=== PATIENT | female | born 1990 | race Caucasian/White ===

== ENCOUNTER 2018-09-03 00:16 | Inpatient (IN) | payer OTHER ==
--- NOTE | 2018-09-03 00:44 | EDPHY ---
H & P Stated Complaint: R arm swelling x few days, recent long plane rides. Time Seen by Provider: 09/03/18 00:34 HPI/ROS: Chief Complaint: Arm pain and swelling HPI: 28-year-old woman presenting with 4 days of right arm swelling. Patient has been traveling overseas. She lives in [place]. She had flown to [place] and back, arriving Friday night. Notice swelling on Friday. She did vital loss [place] and returned. Started noticing the swelling on Friday. Been getting progressively worse today today she noticed that her hand seemed discolored. Arm feels tight. No numbness or tingling. No injuries. She has a Mirena IUD. No other oral contraceptives. She does not smoke. No family history of blood clotting disorders. No trauma. No chest pain or shortness of breath. ROS: 10 systems were reviewed and were negative except those elements noted in the HPI. PMH: Denies Social History: No smoking, occasional alcohol, no recreational drug use Family History: non-contributory Physical Exam: Gen: Awake, Alert, No Distress HEENT: Nose: no rhinorrhea Eyes: PERRLA, EOMI Mouth: Moist mucosa Neck: Supple, no JVD Chest: nontender, lungs clear to auscultation Heart: S1, S2 normal, no murmur Abd: Soft, non-tender, no guarding Back: no CVA tenderness, no midline tenderness Ext: Right arm is profoundly edematous from the shoulder down. Hand is dusky. She has 1+ radial pulses. Capillary refills is less than 3 sec. Sensation is intact in the radial, median, and ulnar nerve distribution Skin: no rash Neuro: CN II-XII intact, Sensation grossly intact, Strength 5/5 in bilateral upper and lower extremities - Personal History LMP (Females 10-55): IUD In Place Current Tetanus Diphtheria and Acellular Pertussis (TDAP): No - Medical/Surgical History Hx Asthma: No Hx Chronic Respiratory Disease: No Hx Diabetes: No Hx Cardiac Disease: No Hx Renal Disease: No Hx Cirrhosis: No Hx Alcoholism: No Hx HIV/AIDS: No Hx Splenectomy or Spleen Trauma: No Other PMH: Denies - Social History Smoking Status: Never smoked Constitutional: Initial Vital Signs Temperature (C) 36.8 C 09/03/18 00:18 Heart Rate 79 09/03/18 00:18 Respiratory Rate 16 02/28/19 00:18 Blood Pressure 137/98 H 09/03/18 00:18 O2 Sat (%) 98 09/03/18 00:18 O2 Delivery Mode Room Air Allergies/Adverse Reactions: amoxicillin Allergy (Verified 09/03/18 00:18) Home Medications: Medication Instructions Recorded NK [No Known Home Meds] 09/03/18 Medical Decision Making - Diagnostics Imaging Results: Ultrasound shows extensive DVT in the right upper extremity with thrombus in the right subclavian vein extending the axillary vein into the basilic vein. Study interpreted by Dr. So, direct Radiology. ED Course/Re-evaluation: Ultrasound noted. I have discussed with the hospitalist. Plan to start the patient on a heparin drip. Admit to Step-Down Unit. Patient does have 1+ radial pulses. Departure - Departure Disposition: [facility] Inpatient Acute Clinical Impression: DVT (deep venous thrombosis) Condition: Fair Referrals: NONE *PRIMARY CARE P,. [Primary Care Provider] - As per Instructions
[2018-09-03] MEDS ORDERED: HEPARIN/DEXTROSE 500 ML IV ONE (02:04)
[2018-09-03] MEDS ORDERED: HEPARIN 10,000 UNIT/10 ML MDV (1,000 UNIT/ML) IVP ONE (02:04)
[2018-09-03] MEDS ORDERED: HEPARIN 10,000 UNIT/10 ML MDV (1,000 UNIT/ML) ONE (02:31)
[2018-09-03 02:36] LABS: PLATELET COUNT 183 10^3/uL (150-400)
[2018-09-03] MEDS ORDERED: ONDANSETRON 4 MG/2 ML VIAL IVP PRN (02:38)
[2018-09-03] MEDS ORDERED: ONDANSETRON DISINTEGRATING 4 MG TAB PO PRN (02:38)
[2018-09-03] MEDS ORDERED: HEPARIN 10,000 UNIT/10 ML MDV (1,000 UNIT/ML) IVP PRN (02:40)
[2018-09-03 02:44] LABS: INR 1.15 (0.83-1.16); PROTIME(PATIENT) 14.2 SEC (12.0-15.0)
[2018-09-03] MEDS ORDERED: HEPARIN/DEXTROSE 500 ML IV SCH ×2 (02:45→16:45)
--- NOTE | 2018-09-03 03:17 | PDGENHP ---
History and Physical - Chief Complaint Arm swelling - History of Present Illness 28 yo F w/ no PMHx presents with R arm swelling. The patient has been travelling frequently lately. She returned from [place] to the [place] 10 days ago. She then travelled to [place] on Friday. On Friday she noticed some subtle R arm swelling when putting on a jacket. She thinks this went away and didn't notice it for the next few days. She traveled here a few days ago and then began to note the swelling again yesterday. Today this became much worse and her hand became dusky. She has discomfort from her skin feeling tight but denies anna pain or numbness. She has good radial pulse. In the ED her evaluation is notable for extensive DVT in the RUE. She has no prior personal history or family history of blood clots. She does have a Mirena IUD in place. She does not smoke and is not obese. During my evaluation the patient tells me her swelling and coloring are improving with elevation of her RUE. Case discussed with ED physician Dr. Woodward; records reviewed and summarized above. History Information - Allergies/Home Medication List Allergies/Adverse Reactions: amoxicillin Allergy (Verified 09/03/18 00:18) Home Medications: NK [No Known Home Meds] 09/03/18 [Last Taken Unknown] I have personally reviewed and updated: family history, medical history - Past Medical History no pertinent PMH - Surgical History Reports: no pertinent surgical hx - Family History Positive for: CAD Additional family history: Denies family hx of VTE - Social History Smoking Status: Never smoked Review of Systems Review of Systems: ROS: 10pt was reviewed & negative except for what was stated in HPI & below Physical Exam Physical Exam: Temp Pulse Resp BP Pulse Ox 36.6 C 90 18 145/96 H 96 09/03/18 03:04 09/03/18 03:04 09/03/18 03:04 09/03/18 03:04 09/03/18 03:04 Constitutional: no apparent distress, appears nourished Eyes: PERRL, EOMI Ears, Nose, Mouth, Throat: moist mucous membranes, no oral mucosal ulcers Cardiovascular: regular rate and rhythym, no murmur, rub, or gallop Respiratory: no respiratory distress, clear to auscultation Gastrointestinal: normoactive bowel sounds, soft, non-tender abdomen Skin: warm, other (RUE swelling, easily palpable R radial pulse) Musculoskeletal: full muscle strength, other (RUE swelling) Neurologic: AAOx3, CN II-XII Intact Psychiatric: interacting appropriately, not anxious Lab Data & Imaging Review 09/03/18 02:30 09/03/18 02:30 WBC 8.57 10^3/uL (3.80-9.50) 09/03/18 02:30 RBC 4.29 10^6/uL (4.18-5.33) 09/03/18 02:30 Hgb 13.2 g/dL (12.6-16.3) 09/03/18 02:30 Hct 38.8 % (38.0-47.0) 09/03/18 02:30 MCV 90.4 fL (81.5-99.8) 09/03/18 02:30 MCH 30.8 pg (27.9-34.1) 09/03/18 02:30 MCHC 34.0 g/dL (32.4-36.7) 09/03/18 02:30 RDW 12.0 % (11.5-15.2) 09/03/18 02:30 Plt Count 183 10^3/uL (150-400) 09/03/18 02:30 MPV 10.5 fL (8.7-11.7) 09/03/18 02:30 Neut % (Auto) 46.5 % (39.3-74.2) 09/03/18 02:30 Lymph % (Auto) 41.7 % (15.0-45.0) 09/03/18 02:30 Ceiba % (Auto) 10.3 % (4.5-13.0) 09/03/18 02:30 Eos % (Auto) 1.1 % (0.6-7.6) 09/03/18 02:30 Baso % (Auto) 0.2 % (0.3-1.7) L 09/03/18 02:30 Nucleat RBC Rel Count 0.0 % (0.0-0.2) 09/03/18 02:30 Absolute Neuts (auto) 3.99 10^3/uL (1.70-6.50) 09/03/18 02:30 Absolute Lymphs (auto) 3.57 10^3/uL (1.00-3.00) H 09/03/18 02:30 Absolute Monos (auto) 0.88 10^3/uL (0.30-0.80) H 09/03/18 02:30 Absolute Eos (auto) 0.09 10^3/uL (0.03-0.40) 09/03/18 02:30 Absolute Basos (auto) 0.02 10^3/uL (0.02-0.10) 09/03/18 02:30 Absolute Nucleated RBC 0.00 10^3/uL (0-0.01) 09/03/18 02:30 Immature Gran % 0.2 % (0.0-1.1) 09/03/18 02:30 Immature Gran # 0.02 10^3/uL (0.00-0.10) 09/03/18 02:30 PT 14.2 SEC (12.0-15.0) 09/03/18 02:30 INR 1.15 (0.83-1.16) 09/03/18 02:30 APTT 25.2 SEC (23.0-38.0) 09/03/18 02:30 Sodium 139 mEq/L (135-145) 09/03/18 02:30 Potassium 3.8 mEq/L (3.5-5.2) 09/03/18 02:30 Chloride 105 mEq/L (97-110) 09/03/18 02:30 Carbon Dioxide 25 mEq/l (22-31) 09/03/18 02:30 Anion Gap 9 mEq/L (6-14) 09/03/18 02:30 BUN 12 mg/dL (7-23) 09/03/18 02:30 Creatinine 0.7 mg/dL (0.6-1.0) 09/03/18 02:30 Estimated GFR > 60 09/03/18 02:30 Glucose 95 mg/dL (70-100) 09/03/18 02:30 Calcium 9.1 mg/dL (8.5-10.4) 09/03/18 02:30 Assessment & Plan Assessment: 28 yo F presents with extensive RUE DVT. Plan: 1. RUE DVT - Unprovoked; recent air travel likely not a sufficient trigger for such an extensive clot. Presentation is suggestive of genetic predisposition to VTE although she denies personal or family history. She does have a Mirena IUD in place, which may have contributed. She does not smoke and has a normal BMI. No signs or symptoms to suggest PE. - Heparin gtt - Elevate RUE - Will place IR consult to consider if directed thrombolysis is appropriate in this case Diet - Regular Code - Full Ppx - Heparin gtt Dispo - Admit under observation status
[2018-09-03] MEDS: ACETAMINOPHEN 325 MG TAB PO PRN ×3 (03:48→19:57)
[2018-09-03 09:32] LABS: PLATELET COUNT 172 10^3/uL (150-400)
[2018-09-03 09:54] LABS: INR 1.21 (0.83-1.16); PROTIME(PATIENT) 14.8 SEC (12.0-15.0)
--- NOTE | 2018-09-03 10:02 | HOSPPROG ---
Hospitalist Progress Note Assessment/Plan: 28 yo F w RUE dvt IR to see heparin gtt check test Subjective: case d/w dr pinzon. arm improved Objective: Vital Signs Temp Pulse Resp BP Pulse Ox 37.1 C 76 16 136/85 H 97 09/03/18 03:25 09/03/18 03:25 09/03/18 03:25 09/03/18 03:25 09/03/18 03:25 Laboratory Results 09/03/18 09:25 09/02/18 09/03/18 09/04/18 05:59 05:59 05:59 Intake Total 85 Balance 85 PT 14.8 SEC (12.0-15.0) 09/03/18 09:25 INR 1.21 (0.83-1.16) H 09/03/18 09:25 - Physical Exam Constitutional: no apparent distress, appears nourished Eyes: PERRL, anicteric sclera Ears, Nose, Mouth, Throat: moist mucous membranes, hearing normal Cardiovascular: regular rate and rhythym, no murmur, rub, or gallop Respiratory: no respiratory distress, no rales or rhonchi Gastrointestinal: normoactive bowel sounds, soft, non-tender abdomen Genitourinary: no bladder fullness Skin: warm Musculoskeletal: other (RUE edematous w good cap refill) Neurologic: AAOx3 Psychiatric: interacting appropriately ICD10 Worksheet Patient Problems: Problems Problem Status Onset DVT (deep venous thrombosis) Acute
--- NOTE | 2018-09-03 12:53 | ASMTCMCOM ---
CM Note CM Note Notes: 09/03/2018 Case Management Note Discussed pt during rounds. Pt admitted for DVT in right upper extremity. There are no case management d/c needs identified at this time d/t pt age and independence with ADL's prior to admission. There are no therapy evals ordered at this time. Case Management d/c poc: independent with follow up as directed. Case Management available if needs change. Date Signed: 09/03/2018 12:52 PM Electronically Signed By:Susy Luis RN
[2018-09-03] MEDS ORDERED: MEPERIDINE 25 MG/ML SYR IVP PRN (13:59)
[2018-09-03] MEDS ORDERED: NALOXONE HCL 0.4 MG/ML INJ IVP PRN (13:59)
[2018-09-03] MEDS ORDERED: FLUMAZENIL 0.5 MG/5 ML MDV IVP PRN (13:59)
[2018-09-03] MEDS ORDERED: MIDAZOLAM 2 MG/2 ML VIAL IVP PRN (13:59)
[2018-09-03] MEDS ORDERED: PROTAMINE SULFATE 50 MG/5 ML VIAL IVP PRN (13:59)
[2018-09-03] MEDS ORDERED: fentaNYL 100 MCG/2 ML INJ IVP PRN (13:59)
[2018-09-03] MEDS ORDERED: NALOXONE HCL 0.4 MG/ML INJ ONE (15:20)
[2018-09-03] MEDS ORDERED: FLUMAZENIL 0.5 MG/5 ML MDV IVP ONE (15:21)
[2018-09-03] MEDS ORDERED: MIDAZOLAM 2 MG/2 ML VIAL ONE (15:21)
[2018-09-03] MEDS ORDERED: fentaNYL 100 MCG/2 ML INJ ONE (15:21)
[2018-09-03] MEDS ORDERED: IOPAMIDOL (ISOVUE 370) 100 ML BTL IV ONE (16:29)
[2018-09-03] MEDS ORDERED: ALTEPLASE 5 MG in NS 100 ML IV SCH (16:30)
[2018-09-03] MEDS ORDERED: LORazepam 1 MG TAB PO PRN (16:32)
[2018-09-03] MEDS ORDERED: PROMETHAZINE HCL 25 MG/ML INJ IVP PRN (16:32)
--- NOTE | 2018-09-03 16:38 | PDPROPOC ---
Sedation Plan of Care Sedation Plan of Care: vital signs stable, mental status noted, patient educated of risks, benefits, alternatives, patient can tolerate sedation ASA Classification: ASA 2 Planned drugs: fentanyl, midazolam Mallampati Score: Class 1 Mallampati Reference Image: Patient passed 3-3-2 rule?: Yes
--- NOTE | 2018-09-03 16:40 | PDRADPN ---
Radiology Procedure Note Date of Procedure: 09/03/18 Radiologist: Nel Chambers Anesthesia: IV Sedation Pre-op Diagnosis: RUE DVT Post-op Diagnosis: SAME Indication: SWELLING ON THE DOMINANT ARM Procedure: VENOGRAM AND TPA LYSIS Finding(s): THORACIC OUTLET SYNDROME. ACUTE CLOT IN SUBCLAVIAN VEIN. Inf/Abcess present in the surg proc area at time of surgery?: No
[2018-09-03] MEDS: ALTEPLASE 5 MG in NS 100 ML IV SCH (21:11)
[2018-09-04] MEDS: ALTEPLASE 5 MG in NS 100 ML IV SCH ×3 (01:25→11:26)
[2018-09-04 05:53] LABS: PLATELET COUNT 146 10^3/uL (150-400)
--- NOTE | 2018-09-04 10:32 | HOSPPROG ---
Hospitalist Progress Note Assessment/Plan: # RUE DVT - currently getting tPA lysis - appreciate IR # thoracic outlet syndrome - plans surgery at [place] (lives in [place]) # rash - consistent with drug reaction - resolved quickly before any intervention taken - very uncommon with tPA and heparin - will treat with benadryl and steroids and follow without changing meds at this time Subjective: arm better - better color and less swelling; we discussed all current treatments with her mother and father Objective: Vital Signs Temp Pulse Resp BP Pulse Ox 36.9 C 74 14 138/88 H 97 09/03/18 14:08 09/04/18 10:00 09/04/18 10:00 09/04/18 10:00 09/04/18 10:00 Laboratory Results 09/04/18 05:00 09/03/18 09:25 09/03/18 09/04/18 09/05/18 05:59 05:59 05:59 Intake Total 85 1881.8 Output Total 1650 Balance 85 231.8 PT 14.8 SEC (12.0-15.0) 09/03/18 09:25 INR 1.21 (0.83-1.16) H 09/03/18 09:25 chart reviewed op note reviewed US reviewed - Physical Exam Constitutional: no apparent distress, appears nourished Cardiovascular: regular rate and rhythym, no murmur, rub, or gallop Respiratory: no respiratory distress, no rales or rhonchi, clear to auscultation Gastrointestinal: normoactive bowel sounds, soft, non-tender abdomen, no palpable masses Skin: other (Confluent erythema which rapidly progressed then regressed; no oral involvement) Musculoskeletal: other (RUE with tpa catheter; edematous, normal color; hand warm; radial pulse palpable) ICD10 Worksheet Patient Problems: Problems Problem Status Onset DVT (deep venous thrombosis) Acute
[2018-09-04] MEDS ORDERED: methylPREDNISolone SOD SUCC 125 MG/2 ML VIAL IVP ONE (10:45)
--- NOTE | 2018-09-04 11:05 | PDMN ---
Medical Necessity Medical necessity: [facility] Vascular disease: 28 yo F with R arm swelling: status changed to INPT 09/04/18 for : Extensive RUE DVT - req tPA lysis - TOS, acute clot in subclavian vein.
[2018-09-04] MEDS ORDERED: IOPAMIDOL (ISOVUE-300) 100 ML BTL ONE (15:30)
[2018-09-04] MEDS: ENOXAPARIN 80 MG/0.8 ML SYR SC SCH (17:15)
[2018-09-04] MEDS ORDERED: methylPREDNISolone SOD SUCC 40 MG/ML VIAL IVP SCH (21:00)
[2018-09-05] MEDS: ENOXAPARIN 80 MG/0.8 ML SYR SC SCH (06:04)
[2018-09-05 06:40] VITALS: BP 115/60
--- NOTE | 2018-09-05 15:18 | GDS ---
[f rep st] DISCHARGE SUMMARY ALL DIAGNOSES: 1. Right upper extremity deep venous thrombosis. 2. Thoracic outlet syndrome. 3. Rash, transient. ALL PROCEDURES: TPA lysis of right upper extremity clot, with significant improvement in the clot bu rden, with a residual focal stenosis of subclavian vein between the clavicle and 1st rib with arm abd uction consistent with thoracic outlet syndrome. HOSPITAL COURSE: This 28-year-old female, who lives in [place], presented with significant right upper extremity edema. Given the extent of her clot, she underwent interventional radiology-directed tPA lysis. Angiographic findings were consistent with thoracic outlet syndrome. She had significan t resolution of her clot. She is being placed on Lovenox 80 mg subcu twice daily. She lives in [facility] and would like to follow up with a thoracic outlet specialist there. She is going to call and set up this appointment. She had a transient rash. It is not clear if this was a reaction to tPA or her heparin drip, althoug h it resolved extremely quickly with Benadryl, as well as steroids. It has completely resolved at th is time. FOLLOWUP: Follow up with Dr. Angelo, who is a thoracic outlet specialist at [place]. BILLING: I spent more than 30 minutes on the day of discharge coordinating care. /[id number]/MODL
== END 2018-09-05 10:05 | disposition home or self-care (01) | DRG 301 ==
LOC: F2W 03:17 → F2N 17:05 → OBSVTOIN 09-04 10:28
PROVIDERS: ADMIT Student in an Organized Health Care Education/Training Program; ATTEND Student in an Organized Health Care Education/Training Program
PROC: 6A750Z7 Ultrasound Therapy of Other Vessels, Single (ICD-10-PCS; principal; 2018-09-03)
PROC: 3E03317 Introduction of Other Thrombolytic into Peripheral Vein, Percutaneous Approach (ICD-10-PCS; principal; 2018-09-03)
PROC: B51M1ZZ Fluoroscopy of Right Upper Extremity Veins using Low Osmolar Contrast (ICD-10-PCS; principal; 2018-09-03)
PROC: B5161ZZ Fluoroscopy of Right Subclavian Vein using Low Osmolar Contrast (ICD-10-PCS; principal; 2018-09-03)
PROC: 3E03317 Introduction of Other Thrombolytic into Peripheral Vein, Percutaneous Approach (ICD-10-PCS; 2018-09-04)
PROC: B5161ZZ Fluoroscopy of Right Subclavian Vein using Low Osmolar Contrast (ICD-10-PCS; 2018-09-04)
DX: I82.621 Acute embolism and thrombosis of deep veins of right upper extremity (principal); G54.0 Brachial plexus disorders; L27.0 Generalized skin eruption due to drugs and medicaments taken internally; T45.615A Adverse effect of thrombolytic drugs, initial encounter
CPT/HCPCS: 85520-90; 96365; C1757; C1769; C1894; G0378; J1200; J1644; J1650; J2250; J2310; J2930; J2997; J3010; Q9967